=== PATIENT | male | born 1960 | race Caucasian/White ===

== ENCOUNTER → 2022-12-14 | Outpatient (CLI) | payer OTHER ==
--- NOTE | 2022-12-14 18:00 | US ---
EXAMINATION TYPE: US extremity nonvasc mass LT DATE OF EXAM: 12/14/2022 COMPARISON: NONE CLINICAL INDICATION: Male, 62 years old with history of R22.42; Lump left lower inner thigh for 1 mon . 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 Patient poor historian. Small incision left inner upper calf inferior to knee TECHNIQUE: Targeted scanning along the patient's palpable site medial aspect of the lower left thigh . FINDINGS: Sonography notes: Anechoic area within patient's area of concern, left lower inner thigh = 3.8 x 1.3 x 2.4cm IMPRESSION: There appears to be an elongated 3.8 x 2.4 x 1.3 cm fluid collection at the patient's palpable site m edial aspect of the lower left thigh. This seems to be located in the subcutaneous fat layer. Etiolog y unclear. No significant associated inflammation seen. Query hematoma or seroma if prior surgery he re. Clinical follow-up recommended to ensure gradual resolution. If the finding persists or enlarges, consider MRI and aspiration for fluid analysis.
== END | disposition home or self-care (01) ==
LOC: RADUSWWP 10:00
PROVIDERS: ATTEND Family Medicine
DX: R22.42 Localized swelling, mass and lump, left lower limb (principal)

== ENCOUNTER → 2024-07-30 | Outpatient (CLI) | payer MEDICARE, OTHER ==
--- NOTE | 2024-07-30 09:40 | US ---
EXAMINATION TYPE: US arterial LE single level DATE OF EXAM: 07/30/2024 9:21 AM COMPARISONS: None. CLINICAL INDICATION: Male, 64 years old with history of Z13.6 ENCOUNTER FOR SCREENING FOR CARDIOVASCU LAR; bilateral legs numbness after his GSV were harvested for bypass 2 years ago TECHNIQUE: Systolic pressures were taken of the upper and lower extremity arteries with ankle-brachia l indices and toe brachial indices calculated bilaterally. History of: Smoker: previous Hypertension: y Diabetic: n Hyperlipidemia: y TIA/CVA: n Previous Vascular Surgery: y - heart bypass CAD: y ME: y Vascular Ulcers: n Claudication: n Gangrene: n FINDINGS: Doppler Waveforms: Right: Multiphasic Left: Multiphasic Brachial Artery systolic pressure: Right: 139 Left: 151 Posterior Tibial artery systolic pressure: Right: 185 Left: 156 Dorsalis Pedis artery systolic pressure: Right: 171 Left: 108 Ankle-Brachial Indices: Right: 1.2 Left: 1.0 (Normal > 0.6; Mild 0.35 - 0.59, Moderate 0.12 - 0.34, Severe <0.12) IMPRESSION: [place]IGH: Right: Normal 0.9 - 1.4, Recommendation: None Left: Normal 0.9 - 1.4, Recommendation: None [facility], , 07/30/2024 9:38 AM
--- NOTE | 2024-07-30 09:43 | US ---
EXAMINATION TYPE: US Aorta Screening DATE OF EXAM: 07/30/2024 COMPARISON: NONE CLINICAL INDICATION: Male, 64 years old with history of Z13.6 ENCOUNTER FOR SCREENING FOR CARDIOVASCU LAR; previous smoker, father had AAA, no symptoms, large abdomen TECHNIQUE: Multiple sonographic images of the abdominal aorta are obtained with grayscale and color D oppler imaging. FINDINGS: EXAM MEASUREMENTS: Abdominal Aorta: Proximal: 3.2 x 3.1cm Mid: 2.3 x 2.2cm Distal: 2.4 x 1.7cm Bifurcation: Right Iliac: bowel gas obscured view Left Iliac: bowel gas obscured view [employer] NOTES: proximal portion above normal limits, no AAA seen IMPRESSION: Mild proximal abdominal aortic aneurysm measuring a maximal dimension of 3.2 cm. [facility], , 07/30/2024 9:40 AM
== END | disposition home or self-care (01) ==
LOC: RADUSWWP 08:45
PROVIDERS: ATTEND Family Medicine
DX: Z13.6 Encounter for screening for cardiovascular disorders (principal); I71.40 Abdominal aortic aneurysm, without rupture, unspecified; Z87.891 Personal history of nicotine dependence
CPT/HCPCS: 76706; 93922